=== PATIENT | male | born 1970 | race Caucasian/White ===

== ENCOUNTER 2020-05-24 11:25 | Emergency (ER) | payer MEDICAID ==
[~2020-05-24] VITALS: Ht 175.3 cm; Wt 79.8 kg
[2020-05-24 11:34] VITALS: BP 142/104
--- NOTE | 2020-05-24 11:36 | NUR ---
Radha bernardo in [facility] - 05/24/20 at 1138 by ROSEMARIE NATIA BLS TAKEN TO BED 7
--- NOTE | 2020-05-24 11:51 | NUR ---
49 YEAR OLD MALE COMPLAINS OF EPIGASTRIC ABDOMINAL PAIN X 4 DAYS. PT STATES DECREASED APPETITE, IS STRESSING MORE. PT DENIES N/V/D, DENIES BLOOD IN URINE/STOOL. PT AOX4, BREATHING EVEN AND UNLABORED, SKIN WARM AND DRY. BED IN LOWEST POSITION, LOCKED, BED RAIL UPX1. PMH - DENIES ALLERGIES - NKA
--- NOTE | 2020-05-24 13:05 | NUR ---
Pt in room, A&OX4, no agitation noted, VSS, will continue to monitor.
[2020-05-24] MEDS ORDERED: KETOROLAC 30 MG/ML VIAL IM ONE (13:25)
--- NOTE | 2020-05-24 13:38 | NUR ---
PT ALERT AND AWAKE, BREATHING EVEN AND UNLABORED. NO DISTRESS NOTED.
[2020-05-24] MEDS ORDERED: IBUP-2213 PO (13:59)
[2020-05-24] MEDS ORDERED: MIRABULK PO (13:59)
[2020-05-24] MEDS ORDERED: FLEMIN RC (13:59)
[2020-05-24 14:10] VITALS: BP 142/104
--- NOTE | 2020-05-24 14:10 | NUR ---
Patient discharged with v/s stable. Written and verbal after care instructions about abdominal pain given and explained. Patient alert, oriented and verbalized understanding of instructions. Ambulatory with steady gait. All questions addressed prior to discharge. ID band removed. Patient advised to follow up with PMD. Rx of mineral oil, ibuprofen, miralax given. Patient educated on indication of medication including possible reaction and side effects. Opportunity to ask questions provided and answered.
== END 2020-05-24 14:10 | disposition home or self-care (01) ==
LOC: MED 11:25
DX: K59.00 Constipation, unspecified (principal); R03.0 Elevated blood-pressure reading, without diagnosis of hypertension; Z79.899 Other long term (current) drug therapy
CPT/HCPCS: 74022; 96372; 99283; J1885